=== PATIENT | female | born 1985 | race African-American/Black ===

== ENCOUNTER 2017-01-10 23:18 | Emergency (ER) | payer OTHER ==
[~2017-01-10] VITALS: Ht 167.6 cm; Wt 90.7 kg
[2017-01-10 23:36] VITALS: BP 134/72
[2017-01-11] MEDS ORDERED: METH4TAB2 PO (00:17)
[2017-01-11] MEDS ORDERED: CYCL10TA2 PO (00:17)
[2017-01-11] MEDS ORDERED: DICL50TA4 PO (00:17)
--- NOTE | 2017-01-11 00:17 | PHYS DOC ---
Past Medical History Past Medical History: No Pertinent History Past Surgical History: No Surgical History Alcohol Use: None Drug Use: None Adult General Chief Complaint Chief Complaint: MULTIPLE COMPLAINTS HPI HPI Patient is a 31 year old female who presents with mild to moderate right shoulder pain and left knee pain that began a couple days ago with no known injury. Patient states the pain on the left knee is worse on ambulation and pain on the right shoulder is worse on range of motion. Review of Systems Review of Systems Constitutional: Denies fever or chills [] Musculoskeletal: right shoulder pain and left knee pain Integument: Denies rash or skin lesions [] Neurologic: Denies headache, focal weakness or sensory changes [] Physical Exam Physical Exam Constitutional: Well developed, well nourished, no acute distress, non-toxic appearance. [] Skin: Warm, dry, no erythema, no rash. [] Back: No tenderness, no CVA tenderness. [] Extremities: Overweight patient. Right shoulder and left knee with no deformity. No tenderness on palpation of the left knee of the right shoulder. Full active as well as passive range of motion to the left knee and right shoulder. Negative Liya sign and negative Sergio's sign negative anterior- posterior drawer sign to the left knee. +2 left pedal pulse. Cap refill less than 2 seconds the left lower extremity. Adequate abduction and adduction of the right shoulder. Adequate plantar flexion and dorsiflexion of the right forearm. +2 right radial pulse. Adequate radial medial and ulnar sensation to the right upper extremity. Neurologic: Alert and oriented X 3, normal motor function, normal sensory function, no focal deficits noted. [] Psychologic: Affect normal, judgement normal, mood normal. [] Current Patient Data Vital Signs Vital Signs Date Time Temp Pulse Resp B/P (MAP) Pulse Ox O2 Delivery O2 Flow Rate FiO2 01/10/17 23:36 98.4 80 14 96 Room Air 98.4 EKG EKG [] Radiology/Procedures Radiology/Procedures [] Course & Med Decision Making Course & Med Decision Making Pertinent Labs and Imaging studies reviewed. (See chart for details) Patient is in the ED with complaints of right shoulder pain and left knee pain with no known injury. Pain appears musculoskeletal, probably arthritis. Will discharged with diclofenac Flexeril and Medrol Dosepak. Follow-up with orthopedic doctor in one week. Dragon Disclaimer Dragon Disclaimer This electronic medical record was generated, in whole or in part, using a voice recognition dictation system. Departure Departure Impression: Primary Impression: Left knee pain Additional Impression: Right shoulder pain Disposition: 01 HOME, SELF-CARE Condition: STABLE Referrals: NO PCP (PCP) NATHANAEL MCKINNEY II, MD Follow up in one week if pain continues Patient Instructions: Knee Pain, [id number], Shoulder Pain Additional Instructions: You were seen for left knee pain and right shoulder pain. Ice elevate the affected extremities. Follow-up with the provided orthopedic doctor in one week if pain continues. Take the prescribed medicines as ordered. Scripts Methylprednisolone (MEDROL) 4 Mg Tab.ds.pk 1 PKG PO UD, #1 PKG Prov: FABRICE HUANG APRN 01/11/17 Cyclobenzaprine Hcl (CYCLOBENZAPRINE HCL) 10 Mg Tablet 1 TAB PO TID, #30 TAB Prov: FABRICE HUANG APRN 01/11/17 Diclofenac Sodium (DICLOFENAC SODIUM) 50 Mg Tablet.dr 1 TAB PO BID, #30 TAB 0 Refills Prov: FABRICE HUANG APRN 01/11/17 Problem Qualifiers Primary Impression: Left knee pain Chronicity: acute Qualified Codes: M25.562 - Pain in left knee Additional Impression: Right shoulder pain Chronicity: acute Qualified Codes: M25.511 - Pain in right shoulder FABRICE HUANG APRN Jan 11, 2017 00:17
== END 2017-01-11 00:40 | disposition home or self-care (01) ==
LOC: ER 23:18
DX: M25.511 Pain in right shoulder (principal); M25.562 Pain in left knee
CPT/HCPCS: 99283

== ENCOUNTER 2017-04-21 12:55 | Emergency (ER) | payer OTHER | END 2017-04-21 15:07 | disposition home or self-care (01) | LOC: ER 15:07 | DX: H10.13 Acute atopic conjunctivitis, bilateral (principal); H10.89 Other conjunctivitis | CPT/HCPCS: 99283 ==

== ENCOUNTER 2017-04-26 02:19 | Emergency (ER) | payer OTHER ==
[2017-04-26 02:39] LABS: ADD MAN DIFF? NO
[2017-04-26 02:40] LABS: URINE HCG POC HCG NEGATIVE (Negative)
[2017-04-26 02:43] LABS: BASO % 1 % (0-3); EOS # 0.3 x10^3/uL (0.0-0.7); EOS % 5 % (0-3); HEMOGLOBIN 11.7 g/dL (12.0-15.5); LYMPH # 3.7 x10^3/uL (1.0-4.8); LYMPH % 51 % (24-48); MEAN CORPUSCULAR HEMOGLOBIN 28 pg (25-35); MEAN CORPUSCULAR HGB CONC 33 g/dL (31-37); MEAN CORPUSCULAR VOLUME 84 fL (79-100); MONO # 0.7 x10^3/uL (0.0-1.1); MONO % 9 % (0-9); NEUT # 2.5 x10^3uL (1.8-7.7); NEUT % 34 % (31-73); PLATELET COUNT 304 x10^3/uL (140-400); RED BLOOD COUNT 4.19 x10^6/uL (3.50-5.40); RED CELL DISTRIBUTION WIDTH 13.8 % (11.5-14.5); WHITE BLOOD COUNT 7.3 x10^3/uL (4.0-11.0)
[2017-04-26 02:52] LABS: BILIRUBIN,URINE NEGATIVE (NEG); CLARITY,URINE CLEAR; COLOR,URINE YELLOW; GLUCOSE,URINE NEGATIVE (NEG); NITRITE,URINE NEGATIVE (NEG); PH,URINE 5.5; PROTEIN,URINE NEGATIVE (NEG-TRACE); UROBILINOGEN,URINE 0.2 mg/dL (0.2 mg/dL)
[2017-04-26] MEDS: ONDANSETRON PF 4 MG/2 ML VIAL. IV (03:05)
[2017-04-26 03:10] LABS: ANION GAP 10 (6-14); BLOOD UREA NITROGEN 12 mg/dL (7-20); BUN/CREATININE RATIO 12 (6-20); CALCIUM 8.9 mg/dL (8.5-10.1); CARBON DIOXIDE 28 mmol/L (21-32); CHLORIDE 102 mmol/L (98-107); GFR 78.8; GLUCOSE 112 mg/dL (70-99); POTASSIUM 3.6 mmol/L (3.5-5.1); SODIUM 140 mmol/L (136-145)
[2017-04-26] MEDS: IV NORMAL SALINE 1000ML BAG 1,000 ML IV (03:10)
[2017-04-26 03:16] LABS: ALBUMIN 3.7 g/dL (3.4-5.0); ALBUMIN/GLOBULIN RATIO 0.9 (1.0-1.7); ALK PHOS 67 U/L (46-116); ALT (SGPT) 28 U/L (14-59); AST (SGOT) 18 U/L (15-37); TOTAL BILIRUBIN 0.2 mg/dL (0.2-1.0); TOTAL PROTEIN 7.8 g/dL (6.4-8.2)
[2017-04-26 03:23] LABS: BACTERIA,URINE MODERATE /HPF (0-FEW); SQUAMOUS EPITHELIAL CELL,UR FEW /LPF; WBC,URINE >40 /HPF (0-4)
[2017-04-26 03:24] LABS: HYALINE CASTS, URINE MODERATE /HPF
[2017-04-26 03:57] LABS: INFLUENZA A PATIENT NEGATIVE (NEGATIVE); INFLUENZA B PATIENT NEGATIVE (NEGATIVE); OBC FLU VALID
== END 2017-04-26 04:03 | disposition home or self-care (01) ==
LOC: ER 02:19
DX: N39.0 Urinary tract infection, site not specified (principal)
CPT/HCPCS: 36415; 80053; 81001; 81025; 85025; 87086; 87804; 87804-59; 96361; 96374; 99284-25; J2405; J7030